=== PATIENT | female | born 1970 | race Caucasian/White ===

== ENCOUNTER 2016-12-26 11:56 | Emergency (ER) | payer BC ==
[~2016-12-26] VITALS: Ht 160 cm; Wt 134.6 kg
[~2016-12-26 11:56] MED LIST: ALLERGY10 M1 PO; CELEBREX200 MG PO; FLEXERIL10 MG PO; GLIMEPIRIDE1 MG PO; GLUCOPHAGE1000 MG PO; LASIX20 MG PO; LEXAPRO10 MG PO; MOTRIN800 MG PO; POTASSIUM CHLOR8 ME3 PO; PREDNISONE20 MG PO; SIMVASTATIN10 MG PO; TIZANIDINE HCL4 M1 PO; ULTRAM50 MG PO; ZESTORETIC 20-1 EAC1 PO; ZESTRIL20 MG PO; ZYRTEC10 M2 PO
[2016-12-26 11:59] VITALS: BP 134/70
[2016-12-26] MEDS ORDERED: AMOXICILLIN500 MG PO (13:34)
== END 2016-12-26 14:08 | disposition home or self-care (01) ==
LOC: EXP 11:56 → EME 11:56 → EXP 14:08
DX: H66.92 Otitis media, unspecified, left ear (principal)
CPT/HCPCS: 93005; 99281; 99284

== ENCOUNTER 2017-03-24 10:03 | Emergency (ER) | payer BC ==
[~2017-03-24] VITALS: Ht 160 cm; Wt 128.0 kg
[~2017-03-24 10:03] MED LIST changes: +AMOXICILLIN500 MG PO
[2017-03-24] MEDS ORDERED: AMBIEN10 MG PO (11:15)
[2017-03-24] MEDS ORDERED: MOTRIN800 MG PO (12:45)
[2017-03-24] MEDS ORDERED: PERCOCET 5/31 TABLET PO (12:45)
[2017-03-24 13:19] VITALS: BP 136/84
== END 2017-03-24 13:20 | disposition home or self-care (01) ==
LOC: EME 10:03
DX: M25.561 Pain in right knee (principal); M25.562 Pain in left knee; S80.11XA Contusion of right lower leg, initial encounter; W17.89XA Other fall from one level to another, initial encounter; E11.9 Type 2 diabetes mellitus without complications; Z79.84 Long term (current) use of oral hypoglycemic drugs
CPT/HCPCS: 73564; 73590; 99281; 99285; J1885

== ENCOUNTER 2018-01-06 16:34 | Emergency (ER) | payer BC ==
[~2018-01-06] VITALS: Ht 160 cm; Wt 119.5 kg
[~2018-01-06 16:34] MED LIST changes: +AMBIEN10 MG PO; +PERCOCET 5/31 TABLET PO
[2018-01-06] MEDS ORDERED: MOTRIN600 MG PO (18:01)
[2018-01-06 18:46] VITALS: BP 134/74
== END 2018-01-06 18:47 | disposition home or self-care (01) ==
LOC: EME 16:34
DX: S83.91XA Sprain of unspecified site of right knee, initial encounter (principal); M25.461 Effusion, right knee; M17.11 Unilateral primary osteoarthritis, right knee; W22.8XXA Striking against or struck by other objects, initial encounter; Z88.5 Allergy status to narcotic agent; Z88.2 Allergy status to sulfonamides
CPT/HCPCS: 73564; 99281; 99284; J1885

== ENCOUNTER 2018-02-01 14:17 | Emergency (ER) | payer BC ==
[~2018-02-01] VITALS: Ht 160 cm; Wt 123.0 kg
[~2018-02-01 14:17] MED LIST changes: +MOTRIN600 MG PO
[2018-02-01 16:56] LABS: BASOPHIL (%) 0.3 % (0-1); EOSINOPHIL (%) 2.1 % (0-5); EOSINOPHIL COUNT 0.2 K/uL (0-0.3); HEMATOCRIT 37.9 % (36.0-46.0); HEMOGLOBIN 12.5 G/DL (11.9-15.5); IMMATURE GRANULOCYTE (%) 0.4 % (0.0-0.7); LYMPHOCYTE (%) 25.9 % (15-42); LYMPHOCYTE COUNT 1.9 K/uL (1.0-2.8); MCH 29.1 PG (29.0-34.0); MCV 88.1 FL (83-99); MONOCYTE (%) 6.4 % (3-12); MONOCYTE COUNT 0.5 K/uL (0-0.8); NEUTROPHIL (%) 64.9 % (45-76); NEUTROPHIL COUNT 4.9 K/uL (1.8-6.4); PLATELET COUNT 213 K/uL (156-360); RBC DIS.WIDTH-CV 13.2 % (11.8-14.6); RBC DIS.WIDTH-SD 42.5 % (39-53); WHITE BLOOD COUNT 7.5 K/uL (4.1-10.2)
[2018-02-01 17:05] LABS: CHLORIDE 102 mEq/L (99-109); D-DIMER ELISA < 150.00 ng/mLDDU (<230); POTASSIUM 3.5 mEq/L (3.7-5.4); SODIUM 141 mEq/L (136-147)
[2018-02-01 17:06] LABS: GLUCOSE 177 mg/dL (70-99)
[2018-02-01 17:10] LABS: CREATININE 0.8 mg/dL (0.6-1.3); GFR ESTIMATE (CALCULATED) > 59 mL/min/
[2018-02-01 17:11] LABS: UREA NITROGEN (BUN) 7 mg/dL (9-23)
[2018-02-01 17:41] LABS: ALBUMIN 4.3 g/dL (3.2-4.8)
[2018-02-01 17:44] LABS: TOTAL PROTEIN 7.6 g/dL (6.4-8.3)
[2018-02-01 17:45] LABS: TOTAL BILIRUBIN 0.4 mg/dL (0.0-1.0)
[2018-02-01 17:46] LABS: ALKALINE PHOSPHATASE 137 IU/L (3-129)
[2018-02-01 17:49] LABS: AST (GOT) 25 IU/L (2-34); DIRECT BILIRUBIN 0.2 mg/dL (0.0-0.3)
[2018-02-01 17:50] LABS: ALT (GPT) 40 IU/L (3-49); LIPASE 65 U/L (1.0-51.0)
[2018-02-01] MEDS ORDERED: LEVAQUIN750 MG PO (20:10)
[2018-02-01] MEDS ORDERED: PREDNISONE20 MG PO (20:11)
[2018-02-01 20:44] VITALS: BP 174/110
== END 2018-02-01 20:46 | disposition home or self-care (01) ==
LOC: EXP 14:17 → EME 14:17 → EXP 20:46
PROVIDERS: Physician Assistant
DX: J18.9 Pneumonia, unspecified organism (principal); Z88.5 Allergy status to narcotic agent; Z88.2 Allergy status to sulfonamides
CPT/HCPCS: 71046; 80048; 80076; 82948; 83605; 83690; 85025; 85379; 87040; 94640; 99281; 99285; J0456; J0696; J7030; J7512